=== PATIENT | female | born 1950 | race Caucasian/White ===

== ENCOUNTER 2017-05-14 12:58 | Inpatient (IN) | payer MEDICARE, OTHER ==
[~2017-05-14] VITALS: Ht 157.5 cm; Wt 107.1 kg
[2017-05-14] VITALS (8 sets, daily range): BP systolic 87–102; BP diastolic 26–43
[~2017-05-14 12:58] MED LIST: ACET-1757 PO; ASPI-515 PO; ASPI-621 PO; ATOR40TA78 PO; CARV-39 PO; CLIN300C8 PO; CYAN5POW PO; DIAZ2TAB3 PO; DOXY100V6 PO; ERGO500017 PO; FAMO20TA37 PO; FAMO20TA7 PO; FELO10TA PO; HYDR100T25 PO; HYDR12.53 PO; IBUP-1222 PO; INSU100C5 SQ-INSULIN; INSU100I28 SQ-INSULIN; INSU100V13 SC; IRON1TAB60 PO; LINE600T37 PO; LISI40TA PO; LOPE2CAP PO; LOSA1TAB25 PO; MAGN100C2 PO; MAGN400T26 PO; METF10002 PO; METO25TA35 PO; METR500T PO; NYST1POW2 TP; ONDA4TAB13 SL; OXYC5TAB3 PO; RIVA15TA PO; RIVA20TA PO; SULF1TAB23 PO; VIT1TABL67 PO; WITC1MED12 PO
[2017-05-14] MEDS ORDERED: PANTOPRAZOLE 80 MG in SODIUM CHLORIDE 0.9% 100 ML IV SCH (13:05)
[2017-05-14] MEDS ORDERED: PANTOPRAZOLE 80 MG in SODIUM CHLORIDE 0.9% 50 ML IVPB ONE (13:05)
[2017-05-14] MEDS ORDERED: VANCOMYCIN 1,400 MG in SODIUM CHLORIDE 0.9% 250 ML IV ONE (13:30)
[2017-05-14] MEDS ORDERED: PIPERACILLIN/TAZO/PMX 3.375GM 50 ML IVPB ONE (13:30)
[2017-05-14] MEDS ORDERED: SODIUM CHLORIDE FLUSH 10ML SYR IVF ONE (13:30)
[2017-05-14] MEDS ORDERED: VANCOMYCIN PER PHARMACY MC ONE (13:30)
[2017-05-14] MEDS ORDERED: PIPERACILLIN/TAZO/PMX 3.375GM 50 ML ONE (13:42)
[2017-05-14 13:44] LABS: HEMATOCRIT 25.4 % (34.6-47.8); HEMOGLOBIN 8.3 g/dL (11.7-16.4); WHITE BLOOD COUNT 16.5 x10^3/uL (3.4-10)
[2017-05-14 13:56] LABS: ASPARTATE AMINO TRANSFERASE 14 U/L (15-37); BLOOD UREA NITROGEN 52 mg/dL (7-18)
[2017-05-14] MEDS ORDERED: SODIUM CHLORIDE 0.9%, 500ML IVBOLUS ONE (14:00)
[2017-05-14 14:07] LABS: DIFF TOTAL CELLS COUNTED 100 CELL DIFF
[2017-05-14 14:11] LABS: ANISOCYTOSIS 2+; HYPOCHROMIA 1+; MICROCYTOSIS 1+; POLYCHROMASIA 1+
[2017-05-14 14:14] LABS: VERIFY COUNTS? YES
[2017-05-14] MEDS ORDERED: MAGNESIUM SULFATE PMX 4GM/100M 100 ML IV ONE (15:00)
[2017-05-14] MEDS ORDERED: ACETAMINOPHEN 325 MG TABLET PO PRN ×2 (17:00)
[2017-05-14] MEDS: INSULIN ASPART 100 UNITS/ML, PEN SQ-INSULIN SCH ×2 (17:00→20:27)
[2017-05-14] MEDS ORDERED: DIAZEPAM 2 MG TABLET PO PRN (17:00)
[2017-05-14] MEDS ORDERED: VANCOMYCIN PER PHARMACY MC PRN (17:00)
[2017-05-14] MEDS: NOREPINEPHRINE 4 MG in SODIUM CHLORIDE 0.9% 246 ML IV PRN (18:52)
[2017-05-14] MEDS ORDERED: PHARMACOKINETIC CONSULTATION MC ONE (19:00)
[2017-05-14] MEDS ORDERED: PHARMACOKINETIC MONITORING MC PRN (19:00)
[2017-05-14] MEDS: PIPERACILLIN/TAZO/PMX 3.375GM 50 ML IV SCH (20:14)
[2017-05-14] MEDS: SODIUM CHLORIDE 0.9% 1,000 ML IV SCH (20:14)
[2017-05-14] MEDS: ATORVASTATIN 40 MG TABLET PO SCH (21:00)
[2017-05-15] MEDS: PANTOPRAZOLE 80 MG in SODIUM CHLORIDE 0.9% 100 ML IV SCH ×2 (00:13→09:35)
[2017-05-15] MEDS ORDERED: NOREPINEPHRINE 1 MG/ML, 4ML ONE (01:01)
[2017-05-15] MEDS: NOREPINEPHRINE 4 MG in SODIUM CHLORIDE 0.9% 246 ML IV PRN ×4 (01:05→11:29)
[2017-05-15] MEDS: PIPERACILLIN/TAZO/PMX 3.375GM 50 ML IV SCH ×4 (01:05→20:38)
[2017-05-15] MEDS ORDERED: SODIUM CHLORIDE 0.9% 1,000ML IVBOLUS ONE (01:30)
[2017-05-15 04:34] VITALS: BP 122/54
[2017-05-15 05:23] LABS: HEMOGLOBIN 9.4 g/dL (11.7-16.4); WHITE BLOOD COUNT 21.6 x10^3/uL (3.4-10)
[2017-05-15 05:41] LABS: ASPARTATE AMINO TRANSFERASE 15 U/L (15-37); BLOOD UREA NITROGEN 59 mg/dL (7-18)
[2017-05-15 05:42] LABS: DIFF TOTAL CELLS COUNTED 100 CELL DIFF
[2017-05-15 05:44] LABS: VERIFY COUNTS? YES
[2017-05-15 05:46] LABS: ANISOCYTOSIS 2+; HYPOCHROMIA 1+; POLYCHROMASIA 1+
[2017-05-15 05:47] LABS: MICROCYTOSIS 1+
[2017-05-15] MEDS: INSULIN ASPART 100 UNITS/ML, PEN SQ-INSULIN SCH ×4 (07:07→20:38)
[2017-05-15] MEDS: SODIUM CHLORIDE 0.9% 1,000 ML IV SCH ×3 (07:48→22:33)
[2017-05-15] MEDS: ERGOCALCIFEROL 50,000 UNIT CAPSULE PO SCH ×2 (09:36→11:28)
[2017-05-15 10:22] LABS: TOTAL IRON BINDING CAPACITY 97 mcg/dL (250-450)
[2017-05-15 10:49] LABS: FERRITIN 865.4 ng/mL (8-252)
[2017-05-15] MEDS: PANTOPROZOLE 40MG TABLET PO SCH ×2 (11:00→22:53)
[2017-05-15] MEDS ORDERED: VANCOMYCIN 1,600 MG in SODIUM CHLORIDE 0.9% 250 ML IV ONE (12:00)
[2017-05-15] MEDS ORDERED: NOREPINEPHRINE 8 MG in SODIUM CHLORIDE 0.9% 242 ML IV PRN (14:00)
[2017-05-15] MEDS: CLINDAMYCIN PMX 900MG/50ML 50 ML IV SCH ×2 (15:05→22:52)
[2017-05-15] MEDS: ONDANSETRON 2MG/ML, 2ML IVPush PRN (15:40)
[2017-05-15] MEDS: METRONIDAZOLE PMX 500MG/100ML 100 ML IV SCH (19:29)
[2017-05-15] MEDS: ATORVASTATIN 40 MG TABLET PO SCH (20:38)
[2017-05-15] MEDS ORDERED: PANTOPRAZOLE 40 MG IV IVPush SCH (21:00)
[2017-05-16] MEDS ORDERED: VANCOMYCIN 1,600 MG in SODIUM CHLORIDE 0.9% 250 ML IV SCH
[2017-05-16] MEDS: PIPERACILLIN/TAZO/PMX 3.375GM 50 ML IV SCH ×4 (02:54→20:58)
[2017-05-16] MEDS ORDERED: NOREPINEPHRINE 16 MG in SODIUM CHLORIDE 0.9% 234 ML IV PRN (02:57)
[2017-05-16] MEDS: METRONIDAZOLE PMX 500MG/100ML 100 ML IV SCH ×3 (03:16→18:48)
[2017-05-16] MEDS ORDERED: VASOPRESSIN 100 UNIT in SODIUM CHLORIDE 0.9% 495 ML IV PRN (03:30)
[2017-05-16] MEDS ORDERED: SODIUM CHLORIDE 0.9% 1,000ML IVBOLUS ONE (03:30)
[2017-05-16] MEDS ORDERED: HYDROcodone/APAP 5/325 TABLET ONE (03:33)
[2017-05-16 03:51] VITALS: BP 97/45
[2017-05-16] MEDS ORDERED: HYDROcodone/APAP 5/325 TABLET PO ONE (04:00)
[2017-05-16] MEDS: SODIUM CHLORIDE 0.9% 1,000 ML IV SCH ×2 (04:44→15:26)
[2017-05-16 05:54] LABS: HEMATOCRIT 27.5 % (34.6-47.8); HEMOGLOBIN 9.2 g/dL (11.7-16.4); WHITE BLOOD COUNT 23.6 x10^3/uL (3.4-10)
[2017-05-16 06:06] LABS: ASPARTATE AMINO TRANSFERASE 13 U/L (15-37); BLOOD UREA NITROGEN 59 mg/dL (7-18)
[2017-05-16 06:11] LABS: DIFF TOTAL CELLS COUNTED 100 CELL DIFF
[2017-05-16 06:17] LABS: ANISOCYTOSIS 2+; HYPOCHROMIA 1+; MICROCYTOSIS 1+; POLYCHROMASIA 1+; VERIFY COUNTS? YES
[2017-05-16 06:18] LABS: ECHINOCYTES 1+
[2017-05-16 06:19] LABS: OVALOCYTES 1+
[2017-05-16] MEDS: CLINDAMYCIN PMX 900MG/50ML 50 ML IV SCH ×3 (07:12→22:47)
[2017-05-16] MEDS ORDERED: SODIUM CHLORIDE 0.9% 1,000 ML IV ONE (09:00)
[2017-05-16] MEDS ORDERED: LIDOCAINE 1%, 50ML ONE (10:09)
[2017-05-16] MEDS: INSULIN ASPART 100 UNITS/ML, PEN SQ-INSULIN SCH ×4 (12:40→20:58)
[2017-05-16] MEDS: PANTOPROZOLE 40MG TABLET PO SCH ×2 (12:42→22:46)
[2017-05-16 17:44] LABS: BLOOD UREA NITROGEN 63 mg/dL (7-18)
[2017-05-16] MEDS: SODIUM BICARBONATE 8.4% 150 MEQ in DEXTROSE 5% 1,000 ML IV SCH (18:22)
[2017-05-16] MEDS: NOREPINEPHRINE 16 MG in SODIUM CHLORIDE 0.9% 234 ML IV PRN (19:43)
[2017-05-16] MEDS: ATORVASTATIN 40 MG TABLET PO SCH (20:58)
[2017-05-17] MEDS ORDERED: LABETALOL 5MG/ML, 20ML IVPush ONE
[2017-05-17] MEDS: PIPERACILLIN/TAZO/PMX 3.375GM 50 ML IV SCH ×4 (02:12→20:09)
[2017-05-17] MEDS: SODIUM BICARBONATE 8.4% 150 MEQ in DEXTROSE 5% 1,000 ML IV SCH ×3 (02:12→20:08)
[2017-05-17] MEDS: METRONIDAZOLE PMX 500MG/100ML 100 ML IV SCH (03:44)
[2017-05-17] MEDS: NOREPINEPHRINE 16 MG in SODIUM CHLORIDE 0.9% 234 ML IV PRN ×2 (03:45→14:24)
[2017-05-17 04:00] VITALS: BP 110/41
[2017-05-17 05:04] LABS: HEMATOCRIT 27.3 % (34.6-47.8); HEMOGLOBIN 8.9 g/dL (11.7-16.4); WHITE BLOOD COUNT 28.5 x10^3/uL (3.4-10)
[2017-05-17 05:27] LABS: BLOOD UREA NITROGEN 67 mg/dL (7-18)
[2017-05-17 05:33] LABS: DIFF TOTAL CELLS COUNTED 100 CELL DIFF
[2017-05-17 05:35] LABS: VERIFY COUNTS? YES
[2017-05-17 05:36] LABS: ANISOCYTOSIS 2+; HYPOCHROMIA 1+; MICROCYTOSIS 1+; POLYCHROMASIA 1+
[2017-05-17 05:37] LABS: ECHINOCYTES 1+; OVALOCYTES 1+
[2017-05-17] MEDS: CLINDAMYCIN PMX 900MG/50ML 50 ML IV SCH ×3 (06:39→23:47)
[2017-05-17] MEDS: INSULIN ASPART 100 UNITS/ML, PEN SQ-INSULIN SCH ×4 (07:40→22:00)
[2017-05-17] MEDS: PANTOPROZOLE 40MG TABLET PO SCH ×2 (08:51→21:58)
[2017-05-17] MEDS: LINEZOLID PMX 600MG/300ML 300 ML IV SCH ×2 (09:43→21:58)
[2017-05-17] MEDS: VANCOMYCIN 50 MG/ML ORAL SUSP PO SCH ×3 (09:43→21:59)
[2017-05-17] MEDS: ATORVASTATIN 40 MG TABLET PO SCH (21:59)
[2017-05-18] MEDS: PIPERACILLIN/TAZO/PMX 3.375GM 50 ML IV SCH ×4 (02:13→20:34)
[2017-05-18] MEDS: VANCOMYCIN 50 MG/ML ORAL SUSP PO SCH ×4 (03:54→20:34)
[2017-05-18] MEDS: SODIUM BICARBONATE 8.4% 150 MEQ in DEXTROSE 5% 1,000 ML IV SCH ×3 (04:28→20:33)
[2017-05-18 04:32] LABS: HEMATOCRIT 26.4 % (34.6-47.8); HEMOGLOBIN 8.8 g/dL (11.7-16.4)
[2017-05-18 04:41] LABS: BLOOD UREA NITROGEN 67 mg/dL (7-18)
[2017-05-18 04:54] LABS: DIFF TOTAL CELLS COUNTED 100 CELL DIFF
[2017-05-18 04:56] LABS: ANISOCYTOSIS 1+; HYPOCHROMIA 1+; MICROCYTOSIS 1+; POLYCHROMASIA 1+; VERIFY COUNTS? YES
[2017-05-18 04:57] LABS: TARGET CELLS 1+
[2017-05-18] MEDS: CLINDAMYCIN PMX 900MG/50ML 50 ML IV SCH ×3 (08:13→22:43)
[2017-05-18] MEDS: NOREPINEPHRINE 16 MG in SODIUM CHLORIDE 0.9% 234 ML IV PRN (08:17)
[2017-05-18] MEDS: LINEZOLID PMX 600MG/300ML 300 ML IV SCH ×2 (08:19→20:34)
[2017-05-18] MEDS: OXYcodone IR 5MG TABLET PO PRN (09:03)
[2017-05-18] MEDS: INSULIN ASPART 100 UNITS/ML, PEN SQ-INSULIN SCH ×4 (09:04→21:40)
[2017-05-18] MEDS: PANTOPROZOLE 40MG TABLET PO SCH ×2 (09:10→20:34)
[2017-05-18] MEDS ORDERED: CALCIUM CHLORIDE 13.6 MEQ in SODIUM CHLORIDE 0.9% 100 ML IV ONE (14:30)
[2017-05-18] MEDS: ALBUMIN HUMAN 25% 100 ML IV SCH ×2 (15:10→22:43)
[2017-05-18] MEDS: ATORVASTATIN 40 MG TABLET PO SCH (20:34)
[2017-05-19] MEDS ORDERED: ALBUTEROL/IPRATROPIUM 2.5MG/0.5MG, 3 ML NPPB PRN (01:00)
[2017-05-19] MEDS ORDERED: ALBUTEROL/IPRATROPIUM 2.5MG/0.5MG, 3 ML ONE (01:03)
[2017-05-19] MEDS: LORazepam 2 MG/ML, 1ML IVPush PRN (01:44)
[2017-05-19] MEDS: VANCOMYCIN 50 MG/ML ORAL SUSP PO SCH ×4 (02:51→21:35)
[2017-05-19] MEDS: PIPERACILLIN/TAZO/PMX 3.375GM 50 ML IV SCH ×3 (02:51→14:56)
[2017-05-19 04:00] VITALS: BP 125/66
[2017-05-19] MEDS: SODIUM BICARBONATE 8.4% 150 MEQ in DEXTROSE 5% 1,000 ML IV SCH (05:51)
[2017-05-19] MEDS: ALBUMIN HUMAN 25% 100 ML IV SCH ×3 (05:51→23:01)
[2017-05-19 06:13] LABS: HEMATOCRIT 26.4 % (34.6-47.8); HEMOGLOBIN 8.8 g/dL (11.7-16.4); WHITE BLOOD COUNT 15.3 x10^3/uL (3.4-10)
[2017-05-19 06:23] LABS: BLOOD UREA NITROGEN 65 mg/dL (7-18)
[2017-05-19 06:34] LABS: DIFF TOTAL CELLS COUNTED 100 CELL DIFF
[2017-05-19 06:35] LABS: VERIFY COUNTS? YES
[2017-05-19 06:36] LABS: ANISOCYTOSIS 1+; MICROCYTOSIS 1+; POLYCHROMASIA 1+
[2017-05-19 06:40] LABS: ABG COLLECTION SITE RIGHT RADIAL; COLLATERAL CIRCULATION TESTING NORMAL
[2017-05-19] MEDS ORDERED: CALCIUM CHLORIDE 13.6 MEQ in SODIUM CHLORIDE 0.9% 100 ML IV ONE (07:30)
[2017-05-19] MEDS ORDERED: RACEPINEPHRINE INH 2.25%, 0.5ML ONE (07:43)
[2017-05-19] MEDS: ALBUTEROL/IPRATROPIUM 2.5MG/0.5MG, 3 ML NPPB SCH ×4 (07:45→19:01)
[2017-05-19] MEDS: CLINDAMYCIN PMX 900MG/50ML 50 ML IV SCH (07:54)
[2017-05-19] MEDS: INSULIN ASPART 100 UNITS/ML, PEN SQ-INSULIN SCH ×4 (07:58→21:43)
[2017-05-19] MEDS: POTASSIUM CHLORIDE 20 MEQ TAB.ER.PRT PO SCH ×2 (08:00→17:00)
[2017-05-19] MEDS ORDERED: FUROSEMIDE 40 MG/4 ML IV STA (08:01)
[2017-05-19] MEDS ORDERED: FUROSEMIDE 40 MG/4 ML ONE (08:01)
[2017-05-19] MEDS ORDERED: FUROSEMIDE 40 MG/4 ML IV ONE ×2 (08:30→10:30)
[2017-05-19] MEDS: SODIUM CHLORIDE 0.9% 1,000 ML IV SCH ×2 (08:47→17:01)
[2017-05-19 09:55] LABS: 027-NAP1-BI Presumpt POSITIVE (Negative); C. DIFF TOXIN A & B Negative
[2017-05-19] MEDS: LINEZOLID PMX 600MG/300ML 300 ML IV SCH ×2 (10:44→21:34)
[2017-05-19] MEDS: PANTOPROZOLE 40MG TABLET PO SCH (11:51)
[2017-05-19 12:13] LABS: PTH INTACT INTERPRETATION ** Comment **
[2017-05-19 12:52] LABS: PARATHYROID HORMONE INTACT 230.9 pg/mL (14-72)
[2017-05-19] MEDS ORDERED: POTASSIUM CHLORIDE 40 MEQ in SODIUM CHLORIDE 0.9% 100 ML IV ONE (19:30)
[2017-05-19] MEDS: PIPERACILLIN/TAZO/PMX 2.25GM 50 ML IV SCH (21:34)
[2017-05-19] MEDS: OXYcodone IR 5MG TABLET PO PRN (21:35)
[2017-05-19] MEDS: ATORVASTATIN 40 MG TABLET PO SCH (21:35)
[2017-05-20] MEDS: PIPERACILLIN/TAZO/PMX 2.25GM 50 ML IV SCH ×4 (02:57→20:47)
[2017-05-20] MEDS: VANCOMYCIN 50 MG/ML ORAL SUSP PO SCH ×4 (03:00→20:47)
[2017-05-20 04:00] VITALS: BP 137/53
[2017-05-20] MEDS: SODIUM CHLORIDE 0.9% 1,000 ML IV SCH (04:37)
[2017-05-20 05:07] LABS: HEMATOCRIT 24.4 % (34.6-47.8); HEMOGLOBIN 8.2 g/dL (11.7-16.4); WHITE BLOOD COUNT 14.6 x10^3/uL (3.4-10)
[2017-05-20 05:11] LABS: BLOOD UREA NITROGEN 61 mg/dL (7-18)
[2017-05-20 05:47] LABS: DIFF TOTAL CELLS COUNTED 100 CELL DIFF
[2017-05-20 05:49] LABS: ANISOCYTOSIS 1+; MICROCYTOSIS 1+; POLYCHROMASIA 1+; VERIFY COUNTS? YES
[2017-05-20] MEDS: INSULIN ASPART 100 UNITS/ML, PEN SQ-INSULIN SCH ×4 (06:10→21:03)
[2017-05-20] MEDS: ALBUMIN HUMAN 25% 100 ML IV SCH ×3 (06:10→22:52)
[2017-05-20] MEDS: ALBUTEROL/IPRATROPIUM 2.5MG/0.5MG, 3 ML NPPB SCH ×4 (07:45→18:55)
[2017-05-20] MEDS ORDERED: POTASSIUM CHLORIDE 20 MEQ PACKET PO SCH (09:00)
[2017-05-20] MEDS: LINEZOLID PMX 600MG/300ML 300 ML IV SCH ×2 (09:19→20:47)
[2017-05-20] MEDS: FUROSEMIDE 100 MG in SODIUM CHLORIDE 0.9% 90 ML IV SCH ×2 (09:20→14:40)
[2017-05-20] MEDS ORDERED: DIAZEPAM 5 MG/ML, 2ML IV ONE ×2 (11:00)
[2017-05-20] MEDS: QUETIAPINE 25MG TABLET PO SCH ×2 (12:18→20:47)
[2017-05-20] MEDS ORDERED: FILTER 0.22 MICRON FOR AMIODARONE IV PRN (13:00)
[2017-05-20] MEDS ORDERED: AMIODARONE 150 MG in DEXTROSE 5% 100 ML IV ONE (13:00)
[2017-05-20] MEDS: AMIODARONE 900 MG in DEXTROSE 5% 482 ML IV PRN (13:16)
[2017-05-20] MEDS ORDERED: POTASSIUM CHLORIDE 40 MEQ in SODIUM CHLORIDE 0.9% 100 ML IV ONE (13:30)
[2017-05-20] MEDS: FUROSEMIDE 250 MG in SODIUM CHLORIDE 0.9% 225 ML IV SCH (18:42)
[2017-05-20] MEDS: ATORVASTATIN 40 MG TABLET PO SCH (20:47)
[2017-05-20] MEDS: OXYcodone IR 5MG TABLET PO PRN (20:47)
[2017-05-20] MEDS: KSCALE TO 4.0 IV SCH (23:00)
[2017-05-20] MEDS ORDERED: POTASSIUM CHLORIDE PMX 100 ML IV ONE (23:45)
[2017-05-21] MEDS: VANCOMYCIN 50 MG/ML ORAL SUSP PO SCH ×4 (03:03→20:48)
[2017-05-21] MEDS: PIPERACILLIN/TAZO/PMX 2.25GM 50 ML IV SCH ×4 (03:03→19:47)
[2017-05-21 04:00] VITALS: BP 164/68
[2017-05-21] MEDS: KSCALE TO 4.0 IV SCH ×4 (05:00→23:00)
[2017-05-21] MEDS: ALBUMIN HUMAN 25% 100 ML IV SCH ×3 (06:06→22:49)
[2017-05-21] MEDS ORDERED: POTASSIUM CHLORIDE PMX 100 ML IV ONE ×4 (06:30→23:45)
[2017-05-21] MEDS: ALBUTEROL/IPRATROPIUM 2.5MG/0.5MG, 3 ML NPPB SCH ×4 (07:50→19:19)
[2017-05-21] MEDS ORDERED: FAMOTIDINE 20 MG/2 ML IVPush SCH (09:30)
[2017-05-21] MEDS: INSULIN ASPART 100 UNITS/ML, PEN SQ-INSULIN SCH ×4 (09:48→20:55)
[2017-05-21] MEDS: QUETIAPINE 25MG TABLET PO SCH ×2 (09:48→20:48)
[2017-05-21] MEDS: LINEZOLID PMX 600MG/300ML 300 ML IV SCH ×2 (09:49→20:48)
[2017-05-21 09:55] LABS: ASPARTATE AMINO TRANSFERASE 7 U/L (15-37); BLOOD UREA NITROGEN 53 mg/dL (7-18)
[2017-05-21 10:53] LABS: ABG COLLECTION SITE LEFT RADIAL; COLLATERAL CIRCULATION TESTING NORMAL
[2017-05-21] MEDS ORDERED: FILTER, DISP 1.2 MICRON FOR TPN/PVN IV PRN (11:00)
[2017-05-21] MEDS: AMIODARONE 900 MG in DEXTROSE 5% 482 ML IV PRN (13:07)
[2017-05-21] MEDS ORDERED: DEXTROSE 10% 500 ML IV PRN (17:00)
[2017-05-21] MEDS ORDERED: DEXTROSE 50%, 50ML SYRINGE IVPush PRN (17:00)
[2017-05-21] MEDS ORDERED: [UNRECOGNIZED DRUG - OTHER] IV SCH (17:00)
[2017-05-21] MEDS ORDERED: FAT EMULSIONS IV SCH (17:00)
[2017-05-21] MEDS ORDERED: AMINO ACID 10% IV SCH (17:00)
[2017-05-21] MEDS ORDERED: DEXTROSE 70% IV SCH (17:00)
[2017-05-21] MEDS ORDERED: TPN PER PHARMACY MC PRN (17:00)
[2017-05-21] MEDS: ATORVASTATIN 40 MG TABLET PO SCH (20:48)
[2017-05-21] MEDS: FUROSEMIDE 250 MG in SODIUM CHLORIDE 0.9% 225 ML IV SCH (20:48)
[2017-05-22] MEDS: VANCOMYCIN 50 MG/ML ORAL SUSP PO SCH ×4 (02:54→20:01)
[2017-05-22] MEDS: INSULIN ASPART 100 UNITS/ML, PEN SQ-INSULIN SCH ×4 (02:54→20:05)
[2017-05-22] MEDS: PIPERACILLIN/TAZO/PMX 2.25GM 50 ML IV SCH ×2 (02:58→07:48)
[2017-05-22] MEDS: LORazepam 2 MG/ML, 1ML IVPush PRN ×2 (03:32→14:42)
[2017-05-22 04:59] VITALS: BP 160/80
[2017-05-22] MEDS: KSCALE TO 4.0 IV SCH ×4 (05:00→23:00)
[2017-05-22 05:10] LABS: HEMATOCRIT 28.2 % (34.6-47.8); HEMOGLOBIN 9.4 g/dL (11.7-16.4); WHITE BLOOD COUNT 17.7 x10^3/uL (3.4-10)
[2017-05-22 05:33] LABS: ASPARTATE AMINO TRANSFERASE 11 U/L (15-37); BLOOD UREA NITROGEN 46 mg/dL (7-18)
[2017-05-22] MEDS: ALBUMIN HUMAN 25% 100 ML IV SCH ×3 (05:35→23:41)
[2017-05-22 05:58] LABS: DIFF TOTAL CELLS COUNTED 100 CELL DIFF
[2017-05-22 05:59] LABS: VERIFY COUNTS? YES
[2017-05-22 06:00] LABS: ANISOCYTOSIS 1+; HYPOCHROMIA 1+; POLYCHROMASIA 1+
[2017-05-22] MEDS ORDERED: POTASSIUM CHLORIDE PMX 100 ML IV ONE ×2 (06:00→14:30)
[2017-05-22] MEDS ORDERED: MAGNESIUM SULFATE PMX 2GM/50ML 50 ML IV ONE (06:30)
[2017-05-22] MEDS: ALBUTEROL/IPRATROPIUM 2.5MG/0.5MG, 3 ML NPPB SCH ×4 (07:00→19:10)
[2017-05-22] MEDS: LINEZOLID PMX 600MG/300ML 300 ML IV SCH ×2 (09:08→21:03)
[2017-05-22] MEDS: ERGOCALCIFEROL 50,000 UNIT CAPSULE PO SCH (09:10)
[2017-05-22] MEDS: QUETIAPINE 25MG TABLET PO SCH ×2 (09:10→20:01)
[2017-05-22] MEDS: HEPARIN 5,000 UNITS/ML, 1ML SQ SCH ×3 (09:11→23:50)
[2017-05-22] MEDS: AMIODARONE 200 MG TABLET PO SCH ×2 (11:37→20:01)
[2017-05-22] MEDS: CARVEDILOL 12.5 MG TABLET PO SCH ×2 (14:12→23:50)
[2017-05-22] MEDS ORDERED: PIPERACILLIN/TAZO/PMX 3.375GM 50 ML IV SCH (14:30)
[2017-05-22] MEDS: PIPERACILLIN/TAZO 3.375 GM in SODIUM CHLORIDE 0.9% 50 ML IVPB SCH ×2 (14:30→20:01)
[2017-05-22] MEDS: OXYcodone IR 5MG TABLET PO PRN (14:52)
[2017-05-22] MEDS ORDERED: AMINO ACID 10% IV SCH (17:00)
[2017-05-22] MEDS ORDERED: [UNRECOGNIZED DRUG - OTHER] IV SCH (17:00)
[2017-05-22] MEDS ORDERED: FILTER, DISP 1.2 MICRON FOR TPN/PVN IV PRN (17:00)
[2017-05-22] MEDS ORDERED: DEXTROSE 70% IV SCH (17:00)
[2017-05-22] MEDS ORDERED: FAT EMULSIONS IV SCH (17:00)
[2017-05-22] MEDS: ATORVASTATIN 40 MG TABLET PO SCH (20:01)
[2017-05-22] MEDS: FUROSEMIDE 250 MG in SODIUM CHLORIDE 0.9% 225 ML IV SCH (21:58)
[2017-05-23] MEDS: INSULIN ASPART 100 UNITS/ML, PEN SQ-INSULIN SCH (02:46)
[2017-05-23] MEDS: VANCOMYCIN 50 MG/ML ORAL SUSP PO SCH ×4 (02:46→21:10)
[2017-05-23] MEDS: PIPERACILLIN/TAZO 3.375 GM in SODIUM CHLORIDE 0.9% 50 ML IVPB SCH ×4 (02:47→20:32)
[2017-05-23 04:26] VITALS: BP 162/69
[2017-05-23] MEDS: KSCALE TO 4.0 IV SCH ×3 (05:00→21:00)
[2017-05-23 05:10] LABS: HEMATOCRIT 25.3 % (34.6-47.8); HEMOGLOBIN 8.5 g/dL (11.7-16.4); WHITE BLOOD COUNT 16.5 x10^3/uL (3.4-10)
[2017-05-23 05:13] LABS: BLOOD UREA NITROGEN 43 mg/dL (7-18)
[2017-05-23] MEDS: ALBUMIN HUMAN 25% 100 ML IV SCH ×3 (05:27→23:32)
[2017-05-23 05:40] LABS: DIFF TOTAL CELLS COUNTED 100 CELL DIFF
[2017-05-23 05:46] LABS: ANISOCYTOSIS 1+; POLYCHROMASIA 1+; VERIFY COUNTS? YES
[2017-05-23 05:48] LABS: MICROCYTOSIS 1+
[2017-05-23] MEDS: ALBUTEROL/IPRATROPIUM 2.5MG/0.5MG, 3 ML NPPB SCH ×4 (07:00→18:54)
[2017-05-23] MEDS: DIAZEPAM 2 MG TABLET PO PRN (09:14)
[2017-05-23] MEDS: AMIODARONE 200 MG TABLET PO SCH (09:14)
[2017-05-23] MEDS: QUETIAPINE 25MG TABLET PO SCH (09:14)
[2017-05-23] MEDS: LINEZOLID PMX 600MG/300ML 300 ML IV SCH ×2 (10:22→21:10)
[2017-05-23] MEDS: AMLODIPINE 5 MG TABLET PO SCH (10:23)
[2017-05-23] MEDS: HEPARIN 5,000 UNITS/ML, 1ML SQ SCH ×2 (10:27→16:58)
[2017-05-23] MEDS: INSULIN ASPART 100 UNITS/ML, 3ML PEN HIGH DOSE SS SQ-INSULIN SCH ×3 (10:39→20:31)
[2017-05-23] MEDS: CARVEDILOL 12.5 MG TABLET PO SCH (13:34)
[2017-05-23] MEDS ORDERED: FAT EMULSIONS IV SCH (17:00)
[2017-05-23] MEDS ORDERED: AMINO ACID 10% IV SCH (17:00)
[2017-05-23] MEDS ORDERED: [UNRECOGNIZED DRUG - OTHER] IV SCH (17:00)
[2017-05-23] MEDS ORDERED: FILTER, DISP 1.2 MICRON FOR TPN/PVN IV PRN (17:00)
[2017-05-23] MEDS ORDERED: DEXTROSE 70% IV SCH (17:00)
[2017-05-23] MEDS: FUROSEMIDE 250 MG in SODIUM CHLORIDE 0.9% 225 ML IV SCH (20:29)
[2017-05-23] MEDS: ATORVASTATIN 40 MG TABLET PO SCH (21:10)
[2017-05-24] MEDS: CARVEDILOL 12.5 MG TABLET PO SCH ×3 (00:17→13:00)
[2017-05-24] MEDS: HEPARIN 5,000 UNITS/ML, 1ML SQ SCH ×3 (00:18→17:22)
[2017-05-24] MEDS: KSCALE TO 4.0 IV SCH ×4 (03:00→21:00)
[2017-05-24] MEDS: VANCOMYCIN 50 MG/ML ORAL SUSP PO SCH ×4 (03:30→20:54)
[2017-05-24] MEDS: PIPERACILLIN/TAZO 3.375 GM in SODIUM CHLORIDE 0.9% 50 ML IVPB SCH ×4 (03:30→20:38)
[2017-05-24] MEDS: INSULIN ASPART 100 UNITS/ML, 3ML PEN HIGH DOSE SS SQ-INSULIN SCH ×2 (03:37→09:54)
[2017-05-24 03:52] LABS: HEMATOCRIT 25.1 % (34.6-47.8); HEMOGLOBIN 8.4 g/dL (11.7-16.4); WHITE BLOOD COUNT 18.7 x10^3/uL (3.4-10)
[2017-05-24 03:57] VITALS: BP 153/64
[2017-05-24 04:03] LABS: BLOOD UREA NITROGEN 42 mg/dL (7-18)
[2017-05-24 04:10] LABS: DIFF TOTAL CELLS COUNTED 100 CELL DIFF
[2017-05-24 04:12] LABS: ANISOCYTOSIS 1+; OVALOCYTES 1+; POLYCHROMASIA 1+; VERIFY COUNTS? YES
[2017-05-24] MEDS: ALBUMIN HUMAN 25% 100 ML IV SCH ×3 (05:52→23:49)
[2017-05-24] MEDS: ALBUTEROL/IPRATROPIUM 2.5MG/0.5MG, 3 ML NPPB SCH ×4 (07:40→19:10)
[2017-05-24] MEDS ORDERED: FUROSEMIDE 250 MG in SODIUM CHLORIDE 0.9% 225 ML IV SCH ×2 (08:56→11:14)
[2017-05-24] MEDS: AMLODIPINE 5 MG TABLET PO SCH (09:54)
[2017-05-24] MEDS: LINEZOLID PMX 600MG/300ML 300 ML IV SCH ×2 (10:41→21:49)
[2017-05-24] MEDS ORDERED: DEXTROSE 70% IV SCH ×2 (11:15→17:00)
[2017-05-24] MEDS ORDERED: [UNRECOGNIZED DRUG - OTHER] IV SCH (11:15)
[2017-05-24] MEDS ORDERED: FAT EMULSIONS IV SCH ×2 (11:15→17:00)
[2017-05-24] MEDS ORDERED: AMINO ACID 10% IV SCH ×2 (11:15→17:00)
[2017-05-24] MEDS: DIAZEPAM 2 MG TABLET PO PRN (11:20)
[2017-05-24] MEDS: FILTER, DISP 1.2 MICRON FOR TPN/PVN IV PRN (14:10)
[2017-05-24] MEDS ORDERED: [UNRECOGNIZED DRUG - OTHER] IV SCH (17:00)
[2017-05-24] MEDS: ATORVASTATIN 40 MG TABLET PO SCH (20:53)
[2017-05-25] MEDS: CARVEDILOL 12.5 MG TABLET PO SCH (00:51)
[2017-05-25] MEDS: HEPARIN 5,000 UNITS/ML, 1ML SQ SCH ×3 (02:09→16:32)
[2017-05-25] MEDS: KSCALE TO 4.0 IV SCH ×4 (03:00→21:00)
[2017-05-25] MEDS: PIPERACILLIN/TAZO 3.375 GM in SODIUM CHLORIDE 0.9% 50 ML IVPB SCH ×4 (03:18→20:30)
[2017-05-25] MEDS: VANCOMYCIN 50 MG/ML ORAL SUSP PO SCH ×4 (03:18→20:35)
[2017-05-25 03:40] LABS: HEMOGLOBIN 7.9 g/dL (11.7-16.4); WHITE BLOOD COUNT 17.9 x10^3/uL (3.4-10)
[2017-05-25 03:51] LABS: BLOOD UREA NITROGEN 42 mg/dL (7-18)
[2017-05-25 03:59] LABS: ASPARTATE AMINO TRANSFERASE 9 U/L (15-37)
[2017-05-25 04:00] VITALS: BP 137/82
[2017-05-25] MEDS: ONDANSETRON 2MG/ML, 2ML IVPush PRN (05:44)
[2017-05-25] MEDS: ALBUMIN HUMAN 25% 100 ML IV SCH ×3 (05:59→23:39)
[2017-05-25] MEDS: ALBUTEROL/IPRATROPIUM 2.5MG/0.5MG, 3 ML NPPB SCH (07:00)
[2017-05-25] MEDS: AMLODIPINE 5 MG TABLET PO SCH (08:46)
[2017-05-25] MEDS: INSULIN ASPART 100 UNITS/ML, PEN SQ-INSULIN SCH (09:06)
[2017-05-25] MEDS: LINEZOLID PMX 600MG/300ML 300 ML IV SCH ×2 (09:48→21:35)
[2017-05-25] MEDS: FILTER, DISP 1.2 MICRON FOR TPN/PVN IV PRN (16:32)
[2017-05-25] MEDS ORDERED: [UNRECOGNIZED DRUG - OTHER] IV SCH (17:00)
[2017-05-25] MEDS ORDERED: [UNRECOGNIZED DRUG - OTHER] IV SCH (17:00)
[2017-05-25] MEDS ORDERED: FAT EMULSIONS IV SCH ×3 (17:00)
[2017-05-25] MEDS ORDERED: [UNRECOGNIZED DRUG - OTHER] IV SCH (17:00)
[2017-05-25] MEDS ORDERED: AMINO ACID 10% IV SCH ×3 (17:00)
[2017-05-25] MEDS ORDERED: DEXTROSE 70% IV SCH ×3 (17:00)
[2017-05-25] MEDS: ATORVASTATIN 40 MG TABLET PO SCH (20:34)
[2017-05-26] MEDS: HEPARIN 5,000 UNITS/ML, 1ML SQ SCH ×3 (02:09→16:17)
[2017-05-26] MEDS: PIPERACILLIN/TAZO 3.375 GM in SODIUM CHLORIDE 0.9% 50 ML IVPB SCH ×4 (02:11→20:31)
[2017-05-26] MEDS: KSCALE TO 4.0 IV SCH ×2 (03:00→09:00)
[2017-05-26] MEDS: VANCOMYCIN 50 MG/ML ORAL SUSP PO SCH ×4 (03:01→20:26)
[2017-05-26 03:35] LABS: ASPARTATE AMINO TRANSFERASE 17 U/L (15-37); BLOOD UREA NITROGEN 48 mg/dL (7-18)
[2017-05-26 04:00] VITALS: BP 137/53
[2017-05-26 04:07] LABS: HEMOGLOBIN 7.2 g/dL (11.7-16.4); WHITE BLOOD COUNT 13.4 x10^3/uL (3.4-10)
[2017-05-26 04:11] LABS: HEMATOCRIT 21.9 % (34.6-47.8)
[2017-05-26] MEDS: ALBUMIN HUMAN 25% 100 ML IV SCH ×2 (06:05→14:29)
[2017-05-26 07:00] VITALS: BP 137/57
[2017-05-26 07:23] VITALS: BP 137/55
[2017-05-26] MEDS: AMLODIPINE 5 MG TABLET PO SCH (08:09)
[2017-05-26] MEDS: INSULIN ASPART 100 UNITS/ML, PEN SQ-INSULIN SCH ×3 (08:23→20:26)
[2017-05-26] MEDS: LINEZOLID PMX 600MG/300ML 300 ML IV SCH ×2 (09:08→21:57)
[2017-05-26 09:30] VITALS: BP 140/59
[2017-05-26 12:09] VITALS: BP 136/70
[2017-05-26 18:21] VITALS: BP 134/64
[2017-05-26] MEDS: ATORVASTATIN 40 MG TABLET PO SCH (20:26)
[2017-05-27 01:01] VITALS: BP 151/68
[2017-05-27] MEDS: HEPARIN 5,000 UNITS/ML, 1ML SQ SCH ×3 (01:57→15:45)
[2017-05-27] MEDS: PIPERACILLIN/TAZO 3.375 GM in SODIUM CHLORIDE 0.9% 50 ML IVPB SCH ×2 (03:38→07:34)
[2017-05-27] MEDS: VANCOMYCIN 50 MG/ML ORAL SUSP PO SCH ×4 (03:47→21:45)
[2017-05-27] MEDS: INSULIN ASPART 100 UNITS/ML, PEN SQ-INSULIN SCH ×4 (07:00→21:00)
[2017-05-27] MEDS ORDERED: FUROSEMIDE 40 MG/4 ML IV ONE (07:30)
[2017-05-27 08:04] LABS: BLOOD UREA NITROGEN 48 mg/dL (7-18)
[2017-05-27 08:10] VITALS: BP 146/73
[2017-05-27] MEDS: AMLODIPINE 5 MG TABLET PO SCH (08:10)
[2017-05-27 08:20] LABS: HEMATOCRIT 24.4 % (34.6-47.8); HEMOGLOBIN 8.1 g/dL (11.7-16.4); WHITE BLOOD COUNT 10.4 x10^3/uL (3.4-10)
[2017-05-27] MEDS: LINEZOLID PMX 600MG/300ML 300 ML IV SCH ×2 (08:52→21:46)
[2017-05-27] MEDS ORDERED: ERTAPENEM 1 GM in SODIUM CHLORIDE 0.9% 50 ML IV SCH (10:00)
[2017-05-27] MEDS: LACTOBACILLUS CHEW TABLET PO SCH ×3 (10:04→21:45)
[2017-05-27 15:03] VITALS: BP 138/67
[2017-05-27] MEDS: PIPERACILLIN/TAZO/PMX 3.375GM 50 ML IV SCH ×2 (15:44→23:39)
[2017-05-27 19:18] VITALS: BP 133/69
[2017-05-27] MEDS: ATORVASTATIN 40 MG TABLET PO SCH (21:45)
[2017-05-28 01:11] VITALS: BP 139/79
[2017-05-28] MEDS: HEPARIN 5,000 UNITS/ML, 1ML SQ SCH ×4 (03:39→22:32)
[2017-05-28] MEDS: VANCOMYCIN 50 MG/ML ORAL SUSP PO SCH ×4 (03:39→22:32)
[2017-05-28 07:09] VITALS: BP 150/74
[2017-05-28 07:20] LABS: HEMATOCRIT 25.8 % (34.6-47.8); HEMOGLOBIN 8.5 g/dL (11.7-16.4); WHITE BLOOD COUNT 10.2 x10^3/uL (3.4-10)
[2017-05-28 07:38] LABS: ASPARTATE AMINO TRANSFERASE 11 U/L (15-37); BLOOD UREA NITROGEN 45 mg/dL (7-18)
[2017-05-28] MEDS: INSULIN ASPART 100 UNITS/ML, PEN SQ-INSULIN SCH ×4 (08:13→22:33)
[2017-05-28] MEDS: PIPERACILLIN/TAZO/PMX 3.375GM 50 ML IV SCH ×2 (08:14→16:44)
[2017-05-28 08:50] VITALS: BP 156/82
[2017-05-28] MEDS: AMLODIPINE 5 MG TABLET PO SCH (10:15)
[2017-05-28] MEDS: LACTOBACILLUS CHEW TABLET PO SCH ×3 (10:15→22:32)
[2017-05-28] MEDS: LINEZOLID PMX 600MG/300ML 300 ML IV SCH ×2 (10:15→22:32)
[2017-05-28] MEDS ORDERED: FUROSEMIDE 40 MG/4 ML IV ONE (13:00)
[2017-05-28 13:27] VITALS: BP 107/70
[2017-05-28 13:45] VITALS: BP 148/74
[2017-05-28 20:00] VITALS: BP 154/75
[2017-05-28] MEDS: ATORVASTATIN 40 MG TABLET PO SCH (22:32)
[2017-05-29] MEDS: FAMOTIDINE 20 MG TABLET PO SCH ×2 (00:19→21:00)
[2017-05-29] MEDS: PIPERACILLIN/TAZO/PMX 3.375GM 50 ML IV SCH ×4 (00:19→23:56)
[2017-05-29 02:00] VITALS: BP 162/74
[2017-05-29] MEDS: VANCOMYCIN 50 MG/ML ORAL SUSP PO SCH ×4 (03:56→21:00)
[2017-05-29] MEDS: HEPARIN 5,000 UNITS/ML, 1ML SQ SCH ×3 (04:00→20:00)
[2017-05-29] MEDS: ALBUTEROL/IPRATROPIUM 2.5MG/0.5MG, 3 ML NPPB PRN (04:20)
[2017-05-29] MEDS: LORazepam 2 MG/ML, 1ML IVPush PRN ×2 (05:28→10:02)
[2017-05-29 06:26] LABS: BLOOD UREA NITROGEN 46 mg/dL (7-18)
[2017-05-29 06:29] LABS: ASPARTATE AMINO TRANSFERASE 13 U/L (15-37)
[2017-05-29 07:52] VITALS: BP 153/82
[2017-05-29] MEDS ORDERED: FUROSEMIDE 40 MG/4 ML IV SCH (09:00)
[2017-05-29] MEDS: LACTOBACILLUS CHEW TABLET PO SCH ×3 (09:00→21:00)
[2017-05-29] MEDS: ERGOCALCIFEROL 50,000 UNIT CAPSULE PO SCH (09:00)
[2017-05-29] MEDS: AMLODIPINE 5 MG TABLET PO SCH (09:00)
[2017-05-29] MEDS: LINEZOLID PMX 600MG/300ML 300 ML IV SCH ×2 (09:51→21:00)
[2017-05-29] MEDS: INSULIN ASPART 100 UNITS/ML, PEN SQ-INSULIN SCH ×4 (09:52→21:00)
[2017-05-29] MEDS ORDERED: FLUMAZENIL 0.1 MG/1 ML, 5ML ONE (10:30)
[2017-05-29] MEDS ORDERED: FLUMAZENIL 0.1 MG/1 ML, 5ML IVPush ONE (10:45)
[2017-05-29 11:01] LABS: ABG COLLECTION SITE RIGHT RADIAL; COLLATERAL CIRCULATION TESTING NORMAL
[2017-05-29 11:05] LABS: FIO2 100 %
[2017-05-29] MEDS: FUROSEMIDE 40 MG/4 ML IV SCH ×2 (11:26→21:00)
[2017-05-29] MEDS ORDERED: FUROSEMIDE 100 MG in SODIUM CHLORIDE 0.9% 90 ML IV SCH (12:00)
[2017-05-29 13:49] LABS: ASPARTATE AMINO TRANSFERASE 13 U/L (15-37); BLOOD UREA NITROGEN 49 mg/dL (7-18)
[2017-05-29] MEDS: ATORVASTATIN 40 MG TABLET PO SCH (21:00)
[2017-05-30] MEDS: VANCOMYCIN 50 MG/ML ORAL SUSP PO SCH ×4 (03:44→21:20)
[2017-05-30] MEDS: HEPARIN 5,000 UNITS/ML, 1ML SQ SCH ×3 (03:46→20:49)
[2017-05-30 04:52] LABS: HEMATOCRIT 24.3 % (34.6-47.8); HEMOGLOBIN 8.1 g/dL (11.7-16.4); WHITE BLOOD COUNT 9.3 x10^3/uL (3.4-10)
[2017-05-30 05:04] LABS: BLOOD UREA NITROGEN 53 mg/dL (7-18)
[2017-05-30] MEDS: INSULIN ASPART 100 UNITS/ML, PEN SQ-INSULIN SCH ×4 (07:00→21:35)
[2017-05-30] MEDS: PIPERACILLIN/TAZO/PMX 3.375GM 50 ML IV SCH ×2 (08:47→15:45)
[2017-05-30] MEDS: LACTOBACILLUS CHEW TABLET PO SCH ×3 (09:23→21:21)
[2017-05-30] MEDS: AMLODIPINE 5 MG TABLET PO SCH (09:23)
[2017-05-30] MEDS: LINEZOLID PMX 600MG/300ML 300 ML IV SCH ×2 (10:57→23:15)
[2017-05-30] MEDS: ATORVASTATIN 40 MG TABLET PO SCH (21:21)
[2017-05-30] MEDS: FAMOTIDINE 20 MG TABLET PO SCH (21:21)
[2017-05-30] MEDS ORDERED: FUROSEMIDE 100 MG in SODIUM CHLORIDE 0.9% 90 ML IV SCH (22:00)
[2017-05-31] MEDS: PIPERACILLIN/TAZO/PMX 3.375GM 50 ML IV SCH ×2 (01:44→08:11)
[2017-05-31] MEDS: VANCOMYCIN 50 MG/ML ORAL SUSP PO SCH ×4 (03:49→21:28)
[2017-05-31] MEDS: LORazepam 2 MG/ML, 1ML IVPush PRN ×2 (03:56→08:00)
[2017-05-31] MEDS ORDERED: FUROSEMIDE 100 MG in SODIUM CHLORIDE 0.9% 90 ML IV SCH (04:00)
[2017-05-31 04:51] LABS: BLOOD UREA NITROGEN 63 mg/dL (7-18)
[2017-05-31] MEDS: HEPARIN 5,000 UNITS/ML, 1ML SQ SCH ×3 (04:52→20:00)
[2017-05-31 05:05] LABS: HEMATOCRIT 23.1 % (34.6-47.8); HEMOGLOBIN 7.7 g/dL (11.7-16.4); WHITE BLOOD COUNT 10.6 x10^3/uL (3.4-10)
[2017-05-31] MEDS: INSULIN ASPART 100 UNITS/ML, PEN SQ-INSULIN SCH ×4 (07:00→21:29)
[2017-05-31] MEDS: LACTOBACILLUS CHEW TABLET PO SCH ×3 (10:36→21:28)
[2017-05-31] MEDS: AMLODIPINE 5 MG TABLET PO SCH (10:36)
[2017-05-31] MEDS: LINEZOLID PMX 600MG/300ML 300 ML IV SCH ×2 (10:36→23:54)
[2017-05-31] MEDS: BUSPIRONE 5 MG TABLET PO SCH ×3 (10:36→21:28)
[2017-05-31] MEDS: DIAZEPAM ELIXIR 1 MG/ML PO PRN ×2 (11:36→21:28)
[2017-05-31] MEDS ORDERED: FUROSEMIDE 40 MG/4 ML ONE (13:39)
[2017-05-31] MEDS ORDERED: FUROSEMIDE 100 MG/10 ML IVPush ONE (14:00)
[2017-05-31] MEDS ORDERED: POTASSIUM CHLORIDE 40 MEQ in SODIUM CHLORIDE 0.9% 500 ML IV ONE (14:30)
[2017-05-31] MEDS ORDERED: AMIODARONE 150 MG in DEXTROSE 5% 100 ML IV ONE (14:30)
[2017-05-31] MEDS ORDERED: FILTER 0.22 MICRON FOR AMIODARONE IV PRN (15:00)
[2017-05-31] MEDS: AMIODARONE 900 MG in DEXTROSE 5% 482 ML IV PRN (15:03)
[2017-05-31] MEDS: PIPERACILLIN/TAZO(ZOSYN) 2.25 GM in NS 50 ML IVPB SCH ×2 (17:41→23:10)
[2017-05-31] MEDS: ATORVASTATIN 40 MG TABLET PO SCH (21:28)
[2017-05-31] MEDS: FAMOTIDINE 20 MG TABLET PO SCH (21:28)
[2017-06-01] MEDS: FUROSEMIDE 100 MG in SODIUM CHLORIDE 0.9% 90 ML IV SCH ×2 (01:09→11:29)
[2017-06-01] MEDS: VANCOMYCIN 50 MG/ML ORAL SUSP PO SCH ×4 (02:41→20:56)
[2017-06-01] MEDS: DIAZEPAM ELIXIR 1 MG/ML PO PRN (03:10)
[2017-06-01] MEDS: HEPARIN 5,000 UNITS/ML, 1ML SQ SCH ×3 (04:33→20:44)
[2017-06-01] MEDS: PIPERACILLIN/TAZO(ZOSYN) 2.25 GM in NS 50 ML IVPB SCH ×2 (04:51→10:05)
[2017-06-01] MEDS: ALBUTEROL/IPRATROPIUM 2.5MG/0.5MG, 3 ML NPPB PRN (04:56)
[2017-06-01 05:04] LABS: BLOOD UREA NITROGEN 67 mg/dL (7-18)
[2017-06-01 05:21] LABS: HEMOGLOBIN 7.4 g/dL (11.7-16.4); WHITE BLOOD COUNT 12.4 x10^3/uL (3.4-10)
[2017-06-01 05:51] LABS: HEMATOCRIT 22.3 % (34.6-47.8)
[2017-06-01] MEDS: AMLODIPINE 5 MG TABLET PO SCH (08:49)
[2017-06-01] MEDS: BUSPIRONE 5 MG TABLET PO SCH ×3 (08:49→20:56)
[2017-06-01] MEDS: LACTOBACILLUS CHEW TABLET PO SCH ×3 (08:49→20:56)
[2017-06-01] MEDS: INSULIN ASPART 100 UNITS/ML, PEN SQ-INSULIN SCH ×3 (08:59→21:03)
[2017-06-01] MEDS ORDERED: MAGNESIUM SULFATE PMX 4GM/100M 100 ML IV ONE (09:30)
[2017-06-01] MEDS: LINEZOLID PMX 600MG/300ML 300 ML IV SCH (11:34)
[2017-06-01] MEDS: AMIODARONE 900 MG in DEXTROSE 5% 482 ML IV PRN (13:37)
[2017-06-01] MEDS ORDERED: TPN PER PHARMACY MC PRN (15:30)
[2017-06-01] MEDS: DOXYCYCLINE 100 MG in DEXTROSE 5% 250 ML IV SCH (16:45)
[2017-06-01] MEDS ORDERED: AMINO ACID 10% IV SCH (17:00)
[2017-06-01] MEDS ORDERED: FAT EMULSIONS IV SCH (17:00)
[2017-06-01] MEDS ORDERED: DEXTROSE 70% IV SCH (17:00)
[2017-06-01] MEDS ORDERED: [UNRECOGNIZED DRUG - OTHER] IV SCH (17:00)
[2017-06-01] MEDS: ATORVASTATIN 40 MG TABLET PO SCH (20:56)
[2017-06-01] MEDS: FILTER, DISP 1.2 MICRON FOR TPN/PVN IV PRN (20:59)
[2017-06-02] MEDS ORDERED: INSULIN REGULAR LOW DOSE Q6H X 48HRS SQ-INSULIN SCH (02:00)
[2017-06-02] MEDS: INSULIN ASPART 100 UNITS/ML, PEN SQ-INSULIN SCH ×3 (03:23→15:00)
[2017-06-02] MEDS: VANCOMYCIN 50 MG/ML ORAL SUSP PO SCH ×4 (03:25→21:34)
[2017-06-02] MEDS: DOXYCYCLINE 100 MG in DEXTROSE 5% 250 ML IV SCH (05:00)
[2017-06-02] MEDS: HEPARIN 5,000 UNITS/ML, 1ML SQ SCH (05:00)
[2017-06-02] MEDS ORDERED: DEXTROSE 10% 500 ML IV PRN (06:00)
[2017-06-02] MEDS ORDERED: DEXTROSE 50%, 50ML SYRINGE IVPush PRN (06:00)
[2017-06-02 06:09] LABS: WHITE BLOOD COUNT 9.4 x10^3/uL (3.4-10)
[2017-06-02 06:10] LABS: HEMOGLOBIN 6.6 g/dL (11.7-16.4)
[2017-06-02 06:11] LABS: ASPARTATE AMINO TRANSFERASE 9 U/L (15-37); BLOOD UREA NITROGEN 77 mg/dL (7-18); HEMATOCRIT 19.8 % (34.6-47.8)
[2017-06-02] MEDS: BUSPIRONE 5 MG TABLET PO SCH ×3 (08:25→21:35)
[2017-06-02] MEDS: LACTOBACILLUS CHEW TABLET PO SCH ×3 (08:25→21:34)
[2017-06-02] MEDS: AMLODIPINE 5 MG TABLET PO SCH (08:25)
[2017-06-02] MEDS: INSULIN REGULAR, HUMAN 100 UNITS/ML, 3ML HIGH DOSE SS SQ-INSULIN SCH ×3 (11:59→23:17)
[2017-06-02] MEDS: FLUTICASONE NASAL SPRAY 16GM NAS SCH ×2 (13:50→21:36)
[2017-06-02] MEDS: DIAZEPAM ELIXIR 1 MG/ML PO PRN ×2 (13:50→21:34)
[2017-06-02 15:33] VITALS: BP 155/63
[2017-06-02 16:10] VITALS: BP 164/74
[2017-06-02 16:50] VITALS: BP 160/72
[2017-06-02] MEDS ORDERED: DEXTROSE 70% IV SCH (17:00)
[2017-06-02] MEDS ORDERED: FAT EMULSIONS IV SCH (17:00)
[2017-06-02] MEDS ORDERED: AMINO ACID 10% IV SCH (17:00)
[2017-06-02] MEDS ORDERED: [UNRECOGNIZED DRUG - OTHER] IV SCH (17:00)
[2017-06-02] MEDS: DOXYCYCLINE 100MG TABLET PO SCH (17:44)
[2017-06-02] MEDS: AMIODARONE 900 MG in DEXTROSE 5% 482 ML IV PRN (17:46)
[2017-06-02] MEDS: ATORVASTATIN 40 MG TABLET PO SCH (21:34)
[2017-06-03 04:41] LABS: HEMOGLOBIN 7.7 g/dL (11.7-16.4); WHITE BLOOD COUNT 10.1 x10^3/uL (3.4-10)
[2017-06-03 04:42] LABS: DIFF TOTAL CELLS COUNTED 100 CELL DIFF
[2017-06-03] MEDS: VANCOMYCIN 50 MG/ML ORAL SUSP PO SCH ×4 (04:43→20:52)
[2017-06-03 04:51] LABS: BLOOD UREA NITROGEN 61 mg/dL (7-18)
[2017-06-03 04:56] LABS: HEMATOCRIT 22.8 % (34.6-47.8)
[2017-06-03] MEDS: INSULIN REGULAR, HUMAN 100 UNITS/ML, 3ML HIGH DOSE SS SQ-INSULIN SCH ×4 (05:20→23:21)
[2017-06-03 06:32] LABS: ANISOCYTOSIS 1+; HYPOCHROMIA 1+; VERIFY COUNTS? YES
[2017-06-03 10:44] LABS: ABG COLLECTION SITE RIGHT RADIAL; COLLATERAL CIRCULATION TESTING NORMAL
[2017-06-03] MEDS: AMLODIPINE 5 MG TABLET PO SCH (10:58)
[2017-06-03] MEDS: BUSPIRONE 5 MG TABLET PO SCH ×3 (10:58→20:51)
[2017-06-03] MEDS: DOXYCYCLINE 100MG TABLET PO SCH ×2 (10:58→20:51)
[2017-06-03] MEDS: LACTOBACILLUS CHEW TABLET PO SCH ×3 (10:58→20:51)
[2017-06-03] MEDS: FLUTICASONE NASAL SPRAY 16GM NAS SCH ×2 (11:08→20:52)
[2017-06-03] MEDS: AMIODARONE 200 MG TABLET PO SCH ×2 (13:01→20:51)
[2017-06-03] MEDS: DIAZEPAM ELIXIR 1 MG/ML PO PRN (16:07)
[2017-06-03] MEDS ORDERED: DEXTROSE 70% IV SCH (17:00)
[2017-06-03] MEDS ORDERED: AMINO ACID 10% IV SCH (17:00)
[2017-06-03] MEDS ORDERED: [UNRECOGNIZED DRUG - OTHER] IV SCH (17:00)
[2017-06-03] MEDS ORDERED: FAT EMULSIONS IV SCH (17:00)
[2017-06-03] MEDS ORDERED: DARBEPOETIN 60 MCG/ML SQ SCH (17:30)
[2017-06-03] MEDS: FILTER, DISP 1.2 MICRON FOR TPN/PVN IV PRN (18:29)
[2017-06-03] MEDS: ATORVASTATIN 40 MG TABLET PO SCH (20:51)
[2017-06-03 21:03] LABS: HEP B SURF. AB < 3.1 mIU/mL (0.0-10.0)
[2017-06-04] MEDS: VANCOMYCIN 50 MG/ML ORAL SUSP PO SCH ×4 (03:44→20:40)
[2017-06-04 04:23] LABS: HEMOGLOBIN 7.3 g/dL (11.7-16.4); WHITE BLOOD COUNT 10.5 x10^3/uL (3.4-10)
[2017-06-04 04:28] LABS: HEMATOCRIT 21.7 % (34.6-47.8)
[2017-06-04 04:29] LABS: BLOOD UREA NITROGEN 84 mg/dL (7-18)
[2017-06-04] MEDS: INSULIN REGULAR, HUMAN 100 UNITS/ML, 3ML HIGH DOSE SS SQ-INSULIN SCH ×4 (04:44→23:04)
[2017-06-04] MEDS: LACTOBACILLUS CHEW TABLET PO SCH ×3 (08:18→20:40)
[2017-06-04] MEDS: DOXYCYCLINE 100MG TABLET PO SCH ×2 (08:18→20:40)
[2017-06-04] MEDS: AMLODIPINE 5 MG TABLET PO SCH (08:18)
[2017-06-04] MEDS: AMIODARONE 200 MG TABLET PO SCH ×2 (08:19→20:40)
[2017-06-04] MEDS: BUSPIRONE 5 MG TABLET PO SCH ×3 (08:19→20:40)
[2017-06-04] MEDS: FLUTICASONE NASAL SPRAY 16GM NAS SCH ×2 (08:19→21:00)
[2017-06-04] MEDS ORDERED: DEXTROSE 70% IV SCH (17:00)
[2017-06-04] MEDS ORDERED: FILTER, DISP 1.2 MICRON FOR TPN/PVN IV PRN (17:00)
[2017-06-04] MEDS ORDERED: [UNRECOGNIZED DRUG - OTHER] IV SCH (17:00)
[2017-06-04] MEDS ORDERED: FAT EMULSIONS IV SCH (17:00)
[2017-06-04] MEDS ORDERED: AMINO ACID 10% IV SCH (17:00)
[2017-06-04] MEDS: ATORVASTATIN 40 MG TABLET PO SCH (20:40)
[2017-06-05] MEDS: VANCOMYCIN 50 MG/ML ORAL SUSP PO SCH ×4 (03:16→20:43)
[2017-06-05] MEDS: INSULIN REGULAR, HUMAN 100 UNITS/ML, 3ML HIGH DOSE SS SQ-INSULIN SCH ×4 (04:40→22:54)
[2017-06-05 05:10] LABS: BLOOD UREA NITROGEN 102 mg/dL (7-18)
[2017-06-05] MEDS ORDERED: INSULIN REGULAR LOW DOSE QDAY SQ-INSULIN SCH (06:00)
[2017-06-05] MEDS: ERGOCALCIFEROL 50,000 UNIT CAPSULE PO SCH (10:44)
[2017-06-05] MEDS: AMLODIPINE 5 MG TABLET PO SCH (10:44)
[2017-06-05] MEDS: FLUTICASONE NASAL SPRAY 16GM NAS SCH ×2 (10:44→20:43)
[2017-06-05] MEDS: LACTOBACILLUS CHEW TABLET PO SCH ×3 (10:44→20:43)
[2017-06-05] MEDS: AMIODARONE 200 MG TABLET PO SCH ×2 (10:45→20:43)
[2017-06-05] MEDS: DOXYCYCLINE 100MG TABLET PO SCH ×2 (10:45→20:43)
[2017-06-05] MEDS: BUSPIRONE 10 MG TABLET PO SCH ×2 (10:45→20:43)
[2017-06-05] MEDS ORDERED: FAT EMULSIONS IV SCH (17:00)
[2017-06-05] MEDS ORDERED: FILTER, DISP 1.2 MICRON FOR TPN/PVN IV PRN (17:00)
[2017-06-05] MEDS ORDERED: DEXTROSE 70% IV SCH (17:00)
[2017-06-05] MEDS ORDERED: AMINO ACID 10% IV SCH (17:00)
[2017-06-05] MEDS ORDERED: [UNRECOGNIZED DRUG - OTHER] IV SCH (17:00)
[2017-06-05] MEDS: ATORVASTATIN 40 MG TABLET PO SCH (20:43)
[2017-06-06] MEDS: VANCOMYCIN 50 MG/ML ORAL SUSP PO SCH ×4 (03:08→21:00)
[2017-06-06] MEDS: INSULIN REGULAR, HUMAN 100 UNITS/ML, 3ML HIGH DOSE SS SQ-INSULIN SCH ×3 (05:00→20:50)
[2017-06-06 05:34] LABS: BLOOD UREA NITROGEN 68 mg/dL (7-18)
[2017-06-06 05:43] LABS: WHITE BLOOD COUNT 10.6 x10^3/uL (3.4-10)
[2017-06-06 05:49] LABS: HEMOGLOBIN 6.6 g/dL (11.7-16.4)
[2017-06-06 05:50] LABS: HEMATOCRIT 19.7 % (34.6-47.8)
[2017-06-06 07:21] VITALS: BP 137/56
[2017-06-06 07:38] VITALS: BP 124/44
[2017-06-06] MEDS ORDERED: MAGNESIUM SULFATE PMX 2GM/50ML 50 ML IV ONE (08:00)
[2017-06-06] MEDS: BUSPIRONE 10 MG TABLET PO SCH ×3 (09:46→21:00)
[2017-06-06] MEDS: FLUTICASONE NASAL SPRAY 16GM NAS SCH ×2 (09:46→21:00)
[2017-06-06] MEDS: AMLODIPINE 5 MG TABLET PO SCH (09:46)
[2017-06-06] MEDS: LACTOBACILLUS CHEW TABLET PO SCH ×3 (09:46→21:00)
[2017-06-06] MEDS: AMIODARONE 200 MG TABLET PO SCH ×2 (09:46→21:00)
[2017-06-06] MEDS: DOXYCYCLINE 100MG TABLET PO SCH ×2 (09:46→21:00)
[2017-06-06 09:59] VITALS: BP 122/103
[2017-06-06 10:31] VITALS: BP 166/71
[2017-06-06 10:49] VITALS: BP 180/74
[2017-06-06] MEDS ORDERED: MORPHINE SULFATE 4 MG/ML, 1ML IVPush ONE (12:00)
[2017-06-06 13:10] LABS: IS PT STATUS REG ER OR PRE ER? NO
[2017-06-06 14:37] VITALS: BP 142/54
[2017-06-06] MEDS ORDERED: [UNRECOGNIZED DRUG - OTHER] IV SCH (17:00)
[2017-06-06] MEDS ORDERED: FILTER, DISP 1.2 MICRON FOR TPN/PVN IV PRN (17:00)
[2017-06-06] MEDS ORDERED: AMINO ACID 10% IV SCH (17:00)
[2017-06-06] MEDS ORDERED: DEXTROSE 70% IV SCH (17:00)
[2017-06-06] MEDS ORDERED: FAT EMULSIONS IV SCH (17:00)
[2017-06-06 18:57] LABS: IS PT STATUS REG ER OR PRE ER? NO
[2017-06-06] MEDS: ATORVASTATIN 40 MG TABLET PO SCH (21:00)
[2017-06-07] MEDS: VANCOMYCIN 50 MG/ML ORAL SUSP PO SCH ×2 (02:59→09:00)
[2017-06-07] MEDS: INSULIN REGULAR, HUMAN 100 UNITS/ML, 3ML HIGH DOSE SS SQ-INSULIN SCH ×2 (03:00→09:00)
[2017-06-07 04:09] LABS: BLOOD UREA NITROGEN 96 mg/dL (7-18)
[2017-06-07 08:28] LABS: HEMATOCRIT 26.2 % (34.6-47.8); HEMOGLOBIN 8.7 g/dL (11.7-16.4); WHITE BLOOD COUNT 13.1 x10^3/uL (3.4-10)
[2017-06-07] MEDS: FLUTICASONE NASAL SPRAY 16GM NAS SCH (09:00)
[2017-06-07] MEDS: DOXYCYCLINE 100MG TABLET PO SCH (09:00)
[2017-06-07] MEDS: AMIODARONE 200 MG TABLET PO SCH (09:00)
[2017-06-07] MEDS: AMLODIPINE 5 MG TABLET PO SCH (09:00)
[2017-06-07] MEDS: LACTOBACILLUS CHEW TABLET PO SCH (09:00)
[2017-06-07] MEDS: BUSPIRONE 10 MG TABLET PO SCH (09:00)
[2017-06-07 09:50] LABS: DIFF TOTAL CELLS COUNTED 100 CELL DIFF
[2017-06-07 09:56] LABS: ANISOCYTOSIS 1+; HYPOCHROMIA 1+; VERIFY COUNTS? YES
[2017-06-07] MEDS ORDERED: LORazepam 2 MG/ML, 1ML IVPush PRN (10:00)
[2017-06-07] MEDS ORDERED: MORPHINE SULFATE 4 MG/ML, 1ML ONE (10:30)
[2017-06-07] MEDS ORDERED: MORPHINE SULFATE 4 MG/ML, 1ML IVPush ONE (10:30)
== END 2017-06-07 17:20 | disposition expired | DRG 871 ==
LOC: ED 13:35 → EDIP 15:06 → CCU 17:51 → 5SO 05-26 12:10 → 4WST 05-27 16:38 → ICU 05-29 10:27 → 3NW 06-07 12:35
PROVIDERS: ADMIT Internal Medicine; ATTEND Internal Medicine
PROC: 0T9B70Z Drainage of Bladder with Drainage Device, Via Natural or Artificial Opening (ICD-10-PCS; 2017-05-14)
PROC: 30233N1 Transfusion of Nonautologous Red Blood Cells into Peripheral Vein, Percutaneous Approach (ICD-10-PCS; 2017-05-14)
PROC: 03HB33Z Insertion of Infusion Device into Right Radial Artery, Percutaneous Approach (ICD-10-PCS; 2017-05-16)
PROC: 03HB33Z Insertion of Infusion Device into Right Radial Artery, Percutaneous Approach (ICD-10-PCS; 2017-05-16)
PROC: 5A09557 Assistance with Respiratory Ventilation, Greater than 96 Consecutive Hours, Continuous Positive Airway Pressure (ICD-10-PCS; 2017-05-19)
PROC: 5A09357 Assistance with Respiratory Ventilation, Less than 24 Consecutive Hours, Continuous Positive Airway Pressure (ICD-10-PCS; 2017-05-20)
PROC: 5A09557 Assistance with Respiratory Ventilation, Greater than 96 Consecutive Hours, Continuous Positive Airway Pressure (ICD-10-PCS; 2017-05-21)
PROC: 5A09357 Assistance with Respiratory Ventilation, Less than 24 Consecutive Hours, Continuous Positive Airway Pressure (ICD-10-PCS; 2017-05-23)
PROC: 5A09357 Assistance with Respiratory Ventilation, Less than 24 Consecutive Hours, Continuous Positive Airway Pressure (ICD-10-PCS; 2017-05-24)
PROC: 5A09357 Assistance with Respiratory Ventilation, Less than 24 Consecutive Hours, Continuous Positive Airway Pressure (ICD-10-PCS; 2017-05-25)
PROC: 5A09557 Assistance with Respiratory Ventilation, Greater than 96 Consecutive Hours, Continuous Positive Airway Pressure (ICD-10-PCS; 2017-05-26)
PROC: 02HV33Z Insertion of Infusion Device into Superior Vena Cava, Percutaneous Approach (ICD-10-PCS; principal; 2017-06-01)
PROC: B548ZZA Ultrasonography of Superior Vena Cava, Guidance (ICD-10-PCS; 2017-06-01)
DX: A41.9 Sepsis, unspecified organism (principal); E43 Unspecified severe protein-calorie malnutrition; J96.20 Acute and chronic respiratory failure, unspecified whether with hypoxia or hypercapnia; N17.0 Acute kidney failure with tubular necrosis; R65.21 Severe sepsis with septic shock; G93.40 Encephalopathy, unspecified; A04.72 Enterocolitis due to Clostridium difficile, not specified as recurrent; J18.9 Pneumonia, unspecified organism; Z99.11 Dependence on respirator [ventilator] status; I50.43 Acute on chronic combined systolic (congestive) and diastolic (congestive) heart failure; I47.1 Supraventricular tachycardia; I13.0 Hypertensive heart and chronic kidney disease with heart failure and stage 1 through stage 4 chronic kidney disease, or unspecified chronic kidney disease; E87.2 Acidosis; E87.1 Hypo-osmolality and hyponatremia; Z68.41 Body mass index [BMI] 40.0-44.9, adult; L03.90 Cellulitis, unspecified; I42.9 Cardiomyopathy, unspecified; J44.0 Chronic obstructive pulmonary disease with (acute) lower respiratory infection; J98.11 Atelectasis; K80.00 Calculus of gallbladder with acute cholecystitis without obstruction; L03.116 Cellulitis of left lower limb; I48.0 Paroxysmal atrial fibrillation; E86.0 Dehydration; E11.22 Type 2 diabetes mellitus with diabetic chronic kidney disease; I50.9 Heart failure, unspecified; G47.33 Obstructive sleep apnea (adult) (pediatric); Z99.81 Dependence on supplemental oxygen; E66.9 Obesity, unspecified; N18.9 Chronic kidney disease, unspecified; D63.1 Anemia in chronic kidney disease; E78.00 Pure hypercholesterolemia, unspecified; E83.42 Hypomagnesemia; E86.1 Hypovolemia; F41.9 Anxiety disorder, unspecified; I07.1 Rheumatic tricuspid insufficiency; I34.0 Nonrheumatic mitral (valve) insufficiency; I35.8 Other nonrheumatic aortic valve disorders; K29.50 Unspecified chronic gastritis without bleeding; Z51.5 Encounter for palliative care; Z66 Do not resuscitate; Z79.01 Long term (current) use of anticoagulants; Z82.3 Family history of stroke; Z82.49 Family history of ischemic heart disease and other diseases of the circulatory system; Z86.010 Personal history of colon polyps; Z86.14 Personal history of Methicillin resistant Staphylococcus aureus infection; Z86.718 Personal history of other venous thrombosis and embolism
CPT/HCPCS: 36415; 36556; 36600; 71010; 74000; 76770; 76937; 77001; 80048; 80053; 80202; 81001; 82040; 82306; 82310; 82330; 82533; 82550; 82607; 82728; 82746; 82803; 82805; 82962; 83540; 83550; 83605; 83735; 83880; 83970; 84100; 84132; 84134; 84443; 84478; 84484; 84550; 85025; 85045; 85610; 86704; 86706; 86707; 86850; 86900; 86923; 87040; 87070; 87081; 87086; 87205; 87324; 87340; 87350; 87493; 89055; 93005; 93306; 93970; 94640; 94660; 96365; 96366; 96367; 96368; J0610; J0881; J1335; J1644; J1815; J1940; J2020; J2405; J2543; J3360; J3370; J3475; J3480; J7060; J7070; J7620; P9047; C1751; C9113; J0282; J1642; J2060; J2270; J3420; J7030; J7040; J7050; P9016; S0028